=== PATIENT | male | born 1995 | race Caucasian/White ===

== ENCOUNTER 2018-06-23 17:39 | Inpatient (IN) | payer OTHER ==
[2018-06-23] MEDS ORDERED: LORazepam TAB(*) 1 MG PO ONE (18:05)
[2018-06-23 18:09] LABS: Urine Appearance Clear; Urine Bilirubin Negative (Negative); Urine Blood Negative (Negative); Urine Color Straw; Urine Glucose Negative (Negative); Urine Ketones Negative (Negative); Urine Nitrite Negative (Negative); Urine Protein Negative (Negative); Urine Specific Gravity 1.004 (1.010-1.030); Urine Urobilinogen Negative (Negative)
--- NOTE | 2018-06-23 18:13 | ED ---
Psychiatric Complaint - HPI Summary HPI Summary: 23-year-old male presents with increasing depression for the past week. He states that has had panic attacks throughout the day which is new for him. He talked with his therapist who advised him to come here. He states he was suicidal but is not anymore. He states he currently graduated college and has a job lined up so is unsure of where this is coming from. He denies any current plan for suicide. He states he feels very short of breath and anxious and feels like his heart is racing as he is having a panic attack. - History Of Current Complaint Chief Complaint: EDMentalHealth Time Seen by Provider: 06/23/18 17:52 - Allergies/Home Medications Allergies/Adverse Reactions: Allergies Allergy/AdvReac Type Severity Reaction Status Date / Time No Known Allergies Allergy Verified 06/23/18 17:45 PMH/Surg Hx/FS Hx/Imm Hx Endocrine/Hematology History: Denies: Hx Anticoagulant Therapy Psychiatric History: Reports: Hx Depression Infectious Disease History: No Infectious Disease History: Denies: Traveled Outside the [place] in Last 30 Days - Family History Known Family History: Positive: Other - Noncontributory - Social History Alcohol Use: Occasionally Substance Use Type: Reports: Marijuana Smoking Status (MU): Never Smoked Tobacco Review of Systems Negative: Fever Negative: Chest Pain Negative: Shortness Of Breath Positive: Anxious, Depressed All Other Systems Reviewed And Are Negative: Yes Physical Exam Triage Information Reviewed: Yes Vital Signs On Initial Exam: Initial Vitals Temp Pulse Resp BP Pulse Ox 98.5 F 68 19 124/88 98 06/23/18 17:40 06/23/18 17:40 06/23/18 17:40 06/23/18 17:40 06/23/18 17:40 Vital Signs Reviewed: Yes Appearance: Positive: Well-Appearing Skin: Positive: Warm, Dry Head/Face: Positive: Normal Head/Face Inspection Eyes: Positive: Normal, EOMI, MANAS, Conjunctiva Clear ENT: Positive: Pharynx normal Respiratory/Lung Sounds: Positive: Clear to Auscultation, Breath Sounds Present Cardiovascular: Positive: Normal, RRR Abdomen Description: Positive: Nontender, Soft Bowel Sounds: Positive: Present Musculoskeletal: Positive: Normal Neurological: Positive: Normal Psychiatric: Positive: Anxious, Depressed Diagnostics - Vital Signs Vital Signs Temp Pulse Resp BP Pulse Ox 06/23/18 18:12 20 06/23/18 17:40 98.5 F 68 19 124/88 98 - Laboratory Lab Results: Lab Results 06/23/18 Range/Units 17:57 Urine Color Straw Urine Appearance Clear Urine pH 8.0 (5-9) Ur Specific [place] 1.004 L (1.010-1.030) Urine Protein Negative (Negative) Urine Ketones Negative (Negative) Urine Blood Negative (Negative) Urine Nitrate Negative (Negative) Urine Bilirubin Negative (Negative) Urine Urobilinogen Negative (Negative) Ur Leukocyte Esterase Negative (Negative) Urine Glucose Negative (Negative) Result Diagrams: 06/23/18 18:11 06/23/18 18:11 Lab Statement: Any lab studies that have been ordered have been reviewed, and results considered in the medical decision making process. Course/Dx - Course Course Of Treatment: 23-year-old male presents with increasing depression for the past week. He states that has had panic attacks throughout the day which is new for him. He talked with his therapist who advised him to come here. He states he was suicidal but is not anymore. He states he currently graduated college and has a job lined up so is unsure of where this is coming from. He denies any current plan for suicide. He states he feels very short of breath and anxious and feels like his heart is racing as he is having a panic attack. On exam patient appears anxious. Otherwise physical exam. gave dose of ativan. Patient is medically clear for mental health. after mental health exam patient will be admitted per dr allison. - Differential Dx/Clinical Impression Differential Diagnosis/HQI/PQRI: Positive: Anxiety, Depression, Suicidal Ideation Provider Diagnosis: Depression Discharge - Sign-Out/Discharge Documenting (check all that apply): Patient Departure - Discharge Plan Condition: Stable [facility] [place]: No Primary Care Phys,NOPCP [Primary Care Provider] - - Billing Disposition and Condition Condition: STABLE [place] [facility] [place]
[2018-06-23 18:17] LABS: ABS Basophils 0.1 10^3/ul (0-0.2); ABS Eosinophils 0.1 10^3/ul (0-0.6); ABS Lymphocytes 1.8 10^3/ul (1.0-4.8); ABS Monocytes 0.9 10^3/ul (0-0.8); Hematocrit 44 % (42-52); Hemoglobin 14.9 g/dL (14.0-18.0); Lymphocyte % 15.3 %; Mean Corpuscular HGB Conc 34 g/dL (31-36); Mean Corpuscular Hemoglobin 31 pg (27-31); Mean Corpuscular Volume 90 fL (80-94); Mean Platelet Volume 7.4 fL (7.4-10.4); Nucleated Red Blood Cells % 0.1; Platelet Count 375 10^3/uL (150-450); Red Blood Count 4.88 10^6 /uL (4.18-5.48); Red Cell Distribution Width 14 % (10.5-15); White Blood Count 11.8 10^3/uL (3.5-10.8)
[2018-06-23 18:24] LABS: Urine Benzodiazepine Screen None Detected (None Detect); Urine Opiates Screen None Detected (None Detect)
[2018-06-23 18:33] LABS: ALT 23 U/L (7-52); AST 17 U/L (13-39); Albumin 4.8 g/dL (3.2-5.2); Albumin/Globulin Ratio 1.5 (1-3); Alkaline Phosphatase 44 U/L (34-104); Anion Gap 5 mmol/L (2-11); BUN/Creatinine Ratio 9.5 (8-20); Blood Urea Nitrogen 10 mg/dL (6-24); CO2 Carbon Dioxide 28 mmol/L (22-32); Calcium 10.2 mg/dL (8.6-10.3); Chloride 105 mmol/L (101-111); EGFR African American 106.9 (>60); EGFR Non-African American 88.3 (>60); Globulin 3.1 g/dL (2-4); Glucose 105 mg/dL (70-100); Potassium 3.9 mmol/L (3.5-5.0); Sodium 138 mmol/L (135-145); Total Protein 7.9 g/dL (6.4-8.9)
[2018-06-23 18:36] LABS: Alcohol < 10 mg/dL (<10); Salicylate < 2.50 mg/dL (<30)
[2018-06-23 18:41] LABS: Acetaminophen < 3 mcg/mL
[2018-06-23 18:51] LABS: TSH (Thyroid Stimulating Horm) 2.11 mcIU/mL (0.34-5.60)
[2018-06-23 22:23] LABS: Lithium 1.32 mmol/L (0.6-1.2)
[2018-06-24 06:55] LABS: HDL Cholesterol 31.1 mg/dL
[2018-06-24] MEDS ORDERED: Acetaminophen TAB* 325 MG PO PRN (06:55)
[2018-06-24] MEDS ORDERED: Al Hydrox/Mg Hydrox/Simet LIQ* 30 ML UDC PO PRN (06:55)
[2018-06-24] MEDS ORDERED: CMCS: Lithium Carbonate ER (NF) 300 MG TAB.ER PO SCH (09:00)
[2018-06-24] MEDS: Lithium Carbonate ER (NF) 300 MG TAB.ER PO SCH ×2 (12:58→20:44)
[2018-06-24] MEDS: Vitamin THERAPEUTIC TAB PO SCH (12:58)
[2018-06-24 16:25] LABS: Lithium 1.02 mmol/L (0.6-1.2)
--- NOTE | 2018-06-24 16:50 | HP ---
HISTORY AND PHYSICAL: DATE OF ADMISSION: 06/23/18 SUPERVISING PSYCHIATRIST: Dr. Evin Gee.* (DICTATED BY MARTHA CRUZ NP) JUSTIFICATION FOR ADMISSION: The patient presented to the emergency department with suicidal ideation. He merits hospitalization for immediate safety and stabilization. CHIEF COMPLAINT: "I started feeling bad. I've been trying not to think about killing myself." HISTORY OF PRESENT ILLNESS: Aubrey is a 23-year-old white male, domiciled, [employer] student who is graduating this month, has a previous diagnosis of bipolar disorder and ADHD, who presented to the emergency department with severely depressed mood, anxiety with panic attacks and suicidal ideation. The patient reports working closely with his outpatient psychiatrist, Dr. Salvatore Ho, since November. He states in the past few weeks he has been feeling increasingly depressed. He endorses anhedonia, isolation, hypersomnia. He reports generally waking up feeling well and then is often paralyzed with anxiety throughout the day. The patient reports he is otherwise looking forward to graduating from [employer]. He has completed his coursework. 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 He reports healthy exercise and diet. He states that he and his outpatient psychiatrist have been titrating lurasidone and he has most recently been taking 40 mg daily with food. He states that taking 80 in the past caused severe akathisia for which he is taking propranolol LA with good effect. The patient reports feeling distressed by intrusive thoughts of suicide. He denies a history of suicide attempts or self-harm. He denies a history of violence or aggression. He denies access to firearms. The patient reports he was prescribed low-dose Ritalin due to long history of ADHD, but he quickly stopped this medication when he started feeling worse. I checked I-STOP and he has been prescribed methylphenidate 5 mg just one time by Dr. Ho. One year ago, he was prescribed Vyvanse by another provider. PAST PSYCHIATRIC HISTORY: The patient denies a history of inpatient psychiatric treatment. He denies a history of substance use or misuse. As stated above, he is seeing Dr. Salvatore Ho for outpatient psychiatry. The patient denies a history of trauma or abuse. PREVIOUS MEDICATION TRIALS: 1. Fluoxetine, nausea. 2. Escitalopram. 3. Vyvanse. PAST MEDICAL HISTORY: The patient reports no active medical problems. PAST SURGICAL HISTORY: He denies surgical history other than wisdom teeth extraction. CURRENT MEDICATIONS: 1. Methylphenidate 5 mg p.o. q. day. The patient stopped 2 weeks ago. 2. Sanostee ER 900 mg in a.m. and 600 mg q.h.s. 3. Propranolol LA 60 mg q.h.s. 4. Lurasidone 80 mg p.o. q.h.s. ALLERGIES: No known drug allergies. [facility] PSYCHIATRIST: Dr. Ho. FAMILY PSYCHIATRIC HISTORY: The patient denies mental health history or suicide in the family. He reports a maternal uncle has been a recovering alcoholic for over 40 years. SOCIAL HISTORY: Bruce is a 23-year-old white male, originally from [place], who is a graduating senior of [employer] majoring in [place]. He has 2 younger siblings by parents who are and live in [place]. His brother is in high school. His sister is a sophomore at [employer]. The patient identifies as heterosexual. He denies currently dating. He states that he broke up with a girlfriend 2 months ago due to her behavior when intoxicated. He denies that this is an ongoing stressor. The patient denies excessive alcohol use and states that "I'm very responsible." He reports some minor experimenting with marijuana, alcohol, prescription medications, and cocaine in the past. Urine drug screen was negative, which is consistent with the patient's report. He denies history of or legal problems. REVIEW OF SYSTEMS: Constitutional: Negative. No fever, chills, or fatigue. ENT: Negative. Cardiovascular: Negative. Denies chest pain or palpitations. Respiratory: Negative. Denies shortness of breath or cough. Genitourinary: Negative. Musculoskeletal: Negative. Neurological: Negative. PHYSICAL EXAMINATION GENERAL: The patient is well appearing and well nourished. VITAL SIGNS: Height 5 feet 11 inches, weight 175 pounds. T 97.1, P 78, respiration rate 16, O2 saturation 99%, BP 119/60. HEENT: Head and face: Normal head and face inspection. Eyes: Positive EOMI. PERRL. Conjunctivae clear. NECK: Supple. Full ROM. Trachea midline. RESPIRATORY: Lung sounds clear to auscultation, breath sounds present. CARDIOVASCULAR: Heart RRR. Pulses are symmetrical in both upper and lower extremities. MUSCULOSKELETAL: Normal strength. ROM intact. NEUROLOGICAL: Normal sensory and motor intact. Alert and oriented x3. Cerebellar function intact. SKIN: Warm, dry. Color reflects adequate perfusion. LABORATORY DATA: CBC: WBC 11.8, absolute neutrophils 9.0, absolute monos 0.9. Chemistry within normal limits. TSH normal 2.11. Hemoglobin A1c normal 5.5. Lipid panel within normal limits. Urinalysis within normal limits. Toxicology negative for salicylates, acetaminophen, or alcohol. Urine drug screen is negative. [place] level 1.32; this was drawn at approximately 1800, which was less than 12 hours than his morning dose. MENTAL STATUS EXAM: The patient is a 23-year-old white male with dark hair and muscular build, who appears stated age. He is pleasant, cooperative, and answers questions fully. He appears to be a good historian, alert and oriented x3. Eye contact is good. Speech is soft, articulate, and spontaneous. Mood is dysphoric, anxious with constricted affect. No abnormal psychomotor activity noted. Thought process is circumstantial. Thought content is positive for intrusive suicidal ideation. The patient denies auditory or visual hallucinations. There are no perceptual disturbances noted. Insight and judgment are fair in that the patient was willing to be hospitalized voluntarily for psychiatric crisis. The patient appears to be of average intellect by virtue of vocabulary and educational attainment. DIAGNOSES: 1. Bipolar 1 disorder, current episode depressed. 2. Panic disorder, rule out generalized anxiety disorder. ASSESSMENT: Aubrey is a 23-year-old white male, [facility], with a history of bipolar disorder, who has been increasingly depressed and anxious for the past 2 weeks. 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 He is distressed by the seemingly unprovoked panic attacks and intrusive thoughts of suicide. PLAN: The patient is admitted to adult behavioral services unit on voluntary status. Code status is full. He is placed on 15-minute checks for his safety. He is encouraged to participate in supportive milieu, individual sessions with staff, and psychoeducational groups. I have left a message with his outpatient psychiatrist, Dr. Ho, to discuss medication changes. We will utilize low-dose propranolol p.r.n. for panic. The patient reports desire to remain on Latuda 80 mg as he is feeling better since taking this dose yesterday. His mother is in town and with the patient's consent, she will be involved in discharge planning. Estimated length of stay is 3 to 4 days. MARTHA CRUZ, WALT [id number]/CPS #: [id number] KANDI
[2018-06-24] MEDS: Propranolol LA CAP* 60 MG PO SCH (20:43)
[2018-06-24] MEDS ORDERED: Lurasidone(*) 80 MG TAB PO SCH (21:00)
[2018-06-24] MEDS: Propranolol TAB* 10 MG PO PRN (21:53)
[2018-06-25] MEDS: Vitamin THERAPEUTIC TAB PO SCH (08:36)
[2018-06-25] MEDS: Lithium Carbonate ER (NF) 300 MG TAB.ER PO SCH ×2 (08:37→20:38)
--- NOTE | 2018-06-25 17:18 | PN ---
Subjective - Subjective Date of Service: 06/25/18 Service Type: 56199 Hosp care 15 min low complexity Subjective: Bruce reports feeling anxious and having more akathisia since increased dose to 80 mg of Latuda. He has no other complaints and denies that there is anything else I can do for him now besides lowering the dose of Latuda to 60 mg to address the akathisia. We reviewed potential side effects of Latuda beyond akathisia, including metabolic syndrome and movement disorders. He voiced understanding and acceptance of these side effect risks, and chose to continue Latuda for the benefits that he reports have been proven to him in stabilizing his mood. Objective - General Observations Appearance: Neat Appears Stated Age: Yes Stature: WNL Posture: WNL Eye Contact: Average Behavior/Activity: Agitated - Interaction Observations Attitude Towards Examiner: Cooperative Stated Mood: Anxious Affect: Full Speech Pattern/Tone: Clear Thought Process: Coherent Perception: WNL Thought Content: WNL Hallucination Type: None Delusion Type: None - Cognitive Function Orientation: A&O x 4 Level of Consciousness: Awake, Alert, Appropriate Cognition: WNL Estimated Intelligence: Above Normal Insight: WNL Judgment Within Normal Limits: Yes - Medication Compliance Cooperative with Inpatient Medication Regimen: Yes - Group Participation Participates in Group Activities: Yes - Elaboration on Positive Findings Positive MSE Findings: anxious, but does not feel it is related to increased akathisia, attributes in part to unusual circumstance of psychiatric hospitalization Assessment - Assessment Merits Inpatient Hospitalization: Consolidate Improvements, For Discharge Planning Clinical Impression: Bruce reports doing well aside from akathisia, and requests a reduction in dose of the Latuda he has been on at 40 mg prior to admission, increased to 80 mg here. He acknowledges diagnosis of bipolar disorder and need for care, demonstrating good insight and judgment. He reports no acute safety concerns. Plan - Plan Treatment Plan: Name: SALVATORE MALLOY Birthdate: 1995 [id number] Continue current plan except with reduction of Latuda to 60 mg TDD. Medications: Current Medications Acetaminophen (Tylenol Tab*) 650 mg PO Q4H PRN PRN Reason: PAIN or TEMP > 101 F Al Hydrox/Mg Hydrox/Simethicone (Maalox Plus*) 30 ml PO Q4H PRN PRN Reason: INDIGESTION [place] Carbonate ([place] Carbonate Er (Nf)) 600 mg PO BEDTIME FAM; Protocol Last Admin: 06/24/18 20:44 Dose: 600 mg [place] Carbonate ([place] Carbonate Er (Nf)) 900 mg PO DAILY FAM Last Admin: 06/25/18 08:37 Dose: 900 mg Lurasidone HCl (Latuda) 80 mg PO BEDTIME FAM Last Admin: 06/24/18 20:44 Dose: 80 mg Multivitamins (Theragran Tab*) 1 tab PO DAILY FAM Last Admin: 06/25/18 08:36 Dose: 1 tab Propranolol HCl (Inderal [place] Cap*) 60 mg PO BEDTIME FAM Last Admin: 06/24/18 20:43 Dose: 60 mg Propranolol HCl (Inderal Tab*) 10 mg PO DAILY PRN PRN Reason: anxiety Last Admin: 06/24/18 21:53 Dose: 10 mg - Discharge Plan Discharge Plan: Outpatient Follow Up
[2018-06-25] MEDS: Lurasidone(*) 60 MG TAB PO SCH (20:38)
[2018-06-25] MEDS: Propranolol LA CAP* 60 MG PO SCH (20:39)
[2018-06-26] MEDS: Lithium Carbonate ER (NF) 300 MG TAB.ER PO SCH ×2 (09:53→20:00)
[2018-06-26] MEDS: Vitamin THERAPEUTIC TAB PO SCH (09:53)
[2018-06-26] MEDS: Lurasidone(*) 60 MG TAB PO SCH (20:00)
[2018-06-26] MEDS: Propranolol LA CAP* 60 MG PO SCH (20:04)
[2018-06-26] MEDS: Propranolol TAB* 10 MG PO PRN (21:19)
[2018-06-27 08:11] VITALS: BP 108/60
[2018-06-27] MEDS: Vitamin THERAPEUTIC TAB PO SCH (08:31)
[2018-06-27] MEDS: Lithium Carbonate ER (NF) 300 MG TAB.ER PO SCH (08:31)
--- NOTE | 2018-06-27 13:00 | DCNOTE ---
Subjective - Subjective Service Types: 01580 Hosp DC Day Mgmt simple under 30 min Discharge Date: 06/27/18 Subjective: Patient reports improved mood and denies SI. He states that akathisia is resolved in this setting and with lower dose of 60mg lurasidone. He inquires about immediate-release propranolol versus LA due to bradycardia. He denies anxiety or panic and has not utilized prn medications. His father, Dharmesh, is present and supportive. Dharmesh states he and his , patient's mother are staying in town until Bruce's graduation this weekend. Objective - General Observations Appearance: Well Groomed Stature: WNL Posture: WNL Eye Contact: Average Behavior/Activity: WNL - Interaction Observations Attitude Towards Examiner: Cooperative Attitude Towards Parent/Guardian: Positive Interaction Stated Mood: Euthymic Affect: Bright Speech Pattern/Tone: Clear, Appropriate, Normal Volume Thought Process: Coherent, Incoherent, Goal Directed Perception: WNL Thought Content: WNL Hallucination Type: None Delusion Type: None - Cognitive Function Orientation: A&O x 4 Level of Consciousness: Alert Cognition: WNL Estimated Intelligence: Normal Insight: WNL Judgment Within Normal Limits: Yes - Medication Compliance Cooperative with Inpatient Medication Regimen: Yes - Group Participation Participates in Group Activities: Yes DC Assessment - Assessment Clinical Impression: Bruce reports doing well aside from akathisia, and requests a reduction in dose of the Latuda he has been on at 40 mg prior to admission, increased to 80 mg here. He acknowledges diagnosis of bipolar disorder and need for care, demonstrating good insight and judgment. He reports no acute safety concerns. Clear for Discharge: Adequate Clinical Respons, Acceptable Safety Profile Inpatient DSM-V Dx: F31.76 Discharge Planning - Discharge Planning Discharge Plan: Outpatient Follow Up Outpatient Program: Private Clinician(s) Recommendations for Continuing Care: Medication Management, Psychotherapy, Routine Metabolic Monitoring, Primary Care Followup Medications: Current Medications [place] Carbonate ([place] Carbonate Er (Nf)) 600 mg PO BEDTIME [facility]; Protocol Last Admin: 06/26/18 20:00 Dose: 600 mg [place] Carbonate ([place] Carbonate Er (Nf)) 900 mg PO DAILY [facility] Last Admin: 06/27/18 08:31 Dose: 900 mg Lurasidone HCl (Latuda) 60 mg PO DAILY@1800 FAM Last Admin: 06/26/18 20:00 Dose: 60 mg Propranolol HCl 60 mg PO BEDTIME [facility] Last Admin: 06/26/18 20:04 Dose: Not Given Propranolol HCl (Inderal Tab*) 10 mg PO DAILY PRN PRN Reason: anxiety Last Admin: 06/26/18 21:19 Dose: 10 mg Discharge Planning: Prescriptions provided for discharge [x] Yes [] No Follow up care details as per social work arrangements: Dr Salvatore Ho, psychiatrist [facility] Patient response to discharge plan: [x] eager for discharge [x] agreeable with discharge plan [] ambivalent about discharge [] disagrees with discharge today
--- NOTE | 2018-06-28 18:41 | DS ---
CC: [facility]; Dr. Salvatore Ho * DISCHARGE SUMMARY: DATE OF ADMISSION: 06/23/18 DATE OF DISCHARGE: 06/27/18 SUPERVISING PSYCHIATRIST: Dr. Evin Gee.* (DICTATED BY MARTHA CRUZ NP) DISCHARGE DIAGNOSIS: Bipolar 1 disorder, current episode depressed. CONDITION AT TIME OF DISCHARGE: Improved. The patient is euthymic with bright affect. He is well related. He reports cessation of suicidal ideation since being admitted to the unit. He has been safe on all checks and in behavioral control. His parents are present and supportive of treatment planning. The patient has tolerated minor medication changing including lower dose of 60 mg lurasidone. He reports improvement in akathisia. He denies anxiety or panic and has not utilized p.r.n. medications. We discussed use of immediate release propranolol versus long- acting due to bradycardia. His father, Dharmesh is present and supportive of discharge. Dharmesh states he and his , the patient's mother, are staying in town until Bruce's graduation from [employer] this weekend. The patient reports readiness for discharge. He is discharged to home. MENTAL STATUS EXAM: The patient is a 23-year-old white male with dark hair and muscular build who appears stated age. He is pleasant, cooperative, and answers questions fully. He appears to be a good historian. He is alert and oriented x3. Eye contact is good. Speech is soft, articulate and spontaneous. Mood is euthymic with full range of affect. Normal psychomotor activity noted. Thought process is logical, coherent, and goal directed. Thought content is negative for suicidal ideation or passive wish. He denies auditory or visual hallucinations. There are no perceptual disturbances noted. Insight and judgment are fair and that the patient was willing to be hospitalized voluntarily for psychiatric crisis. The patient appears to be of average intellect by virtue of vocabulary and educational attainment. INSTRUCTIONS GIVEN TO PATIENT: A. Medications: 1. [place] carbonate ER 900 mg in a.m. 2. [place] carbonate ER 600 mg at bedtime. 3. Lurasidone 60 mg p.o. daily. 4. Propranolol 60 mg p.o. q.h.s. B. Diet: Regular. C. Activity: Ambulation as tolerated. Tobacco cessation is not applicable. There are no pending labs or diagnostic studies. D. Followup care: The patient will follow up with a therapist at [facility] and Dr. Ho, the patient's current outpatient psychiatrist. E. Substance use followup is not applicable. HOSPITAL COURSE: Part A: Reason for admission: The patient presented to the emergency department with intrusive suicidal ideation. HISTORY OF PRESENT ILLNESS: Aubrey is a 23-year-old white male, domiciled, [employer] student who is graduating this month, has a previous diagnosis of bipolar disorder and ADHD, who presented to the emergency department with severely depressed mood, anxiety with panic attacks and suicidal ideation. The patient reports working closely with his outpatient psychiatrist, Dr. Salvatore Ho, since November. He states in the past few weeks he has been feeling increasingly depressed. He endorses anhedonia, isolation, hypersomnia. He reports generally waking up feeling well and then is often paralyzed with anxiety throughout the day. The patient reports he is otherwise looking forward to graduating from [employer]. He has completed his coursework. 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 He reports healthy exercise and diet. He states that he and his outpatient psychiatrist have been titrating lurasidone and he has most recently taking 40 mg daily with food. He states that taking 80 in the past caused severe akathisia for which he is taking propranolol LA with good effect. The patient reports feeling distressed by intrusive thoughts of suicide. He denies a history of suicide attempts or self-harm. He denies a history of violence or aggression. He denies access to firearms. The patient reports he was prescribed low-dose Ritalin due to long history of ADHD, but he quickly stopped this medication when he started feeling worse. I checked I-STOP and he has been prescribed methylphenidate 5 mg just [address] Ho. One year ago, he was prescribed Vyvanse by another provider. Part B. Psychiatric treatment rendered: The patient was admitted to adult behavioral services on a voluntary status. His code status is full. He was placed on 15-minute checks for safety. He participated in supportive milieu, individual sessions with staff and psychoeducational groups. He was decreased to 30 minute observation and allowed staff pass and computer use. We would discussion coordination with his outpatient psychiatrist, Dr. Ho. While on the unit, the patient attempted to remain on Latuda 80 mg. The patient reported increase in akathisia and agreed to a lower dose of 60 mg to which he responded well. The patient reported cessation of suicidal ideation while hospitalized. First day of admission, his mother had come from [place] to provide support. The patient reported desire to remain in the hospital for stabilization over the weekend. On 06/27/18, the patient reported improvement in symptoms and desire to be discharged. He had already coordinated with his parents who are staying here for a week. This policy writer spoke with Dr. Ho in regards to minor medication changes and the patient's treatment planning. Generally, this is a very pleasant young man who is easy to establish rapport. He reported seemingly no precursors to onset of anxiety and suicidal thoughts. He presently disagreed with the option that current state might have to do with transitioning from college to career, although this is likely precipitating factor. At the time of discharge, the patient was psychiatrically stabilized and appropriate for outpatient treatment. MARTHA CRUZ, [place] [id number]/CPS #: [id number] KANDI
== END 2018-06-27 13:30 | disposition home or self-care (01) | DRG 885 ==
LOC: ED 17:39 → BSU 22:00
PROVIDERS: ADMIT Psychiatry & Neurology Psychiatry; ATTEND Psychiatry & Neurology Psychiatry
DX: F31.30 Bipolar disorder, current episode depressed, mild or moderate severity, unspecified (principal); R45.851 Suicidal ideations; F41.0 Panic disorder [episodic paroxysmal anxiety]; F90.9 Attention-deficit hyperactivity disorder, unspecified type; G25.71 Drug induced akathisia; Z72.89 Other problems related to lifestyle; Z81.1 Family history of alcohol abuse and dependence
CPT/HCPCS: 36415; 80053; 80061; 80178; 80307; 80320; 80329; 81003; 83036; 84443; 85025; 99222; 99231; 99238; 99284; A9270-GY; G0480